=== PATIENT | male | born 1990 | race Caucasian/White ===

== ENCOUNTER 2017-06-05 15:53 | Emergency (ER) | payer SELFPAY ==
[~2017-06-05] VITALS: Ht 188 cm; Wt 90.7 kg
[2017-06-05] MEDS ORDERED: LIDOCAINE 1% INJ 50 ML MDV IJ ONE (16:08)
[2017-06-05] MEDS: LIDOCAINE 1% INJ 50 ML MDV IJ ONE (16:38)
[2017-06-05] MEDS ORDERED: TDAP [DIPH/PERTUSSIS/TET] 0.5 ML VIAL IM ONE (16:39)
[2017-06-05] MEDS: TDAP [DIPH/PERTUSSIS/TET] 0.5 ML VIAL IM ONE (16:43)
--- NOTE | 2017-06-05 16:43 | NUR ---
Patient discharged to home in stable condition. Written and verbal after care instructions given. Patient verbalizes understanding of instruction.
[2017-06-05 16:45] VITALS: BP 125/74
== END 2017-06-05 16:46 | disposition home or self-care (01) ==
LOC: ER 15:55
DX: S61.512A Laceration without foreign body of left wrist, initial encounter (principal); F17.200 Nicotine dependence, unspecified, uncomplicated; Z88.8 Allergy status to other drugs, medicaments and biological substances; Z23 Encounter for immunization; W26.8XXA Contact with other sharp object(s), not elsewhere classified, initial encounter; Y93.89 Activity, other specified; Y92.89 Other specified places as the place of occurrence of the external cause; Y99.8 Other external cause status
CPT/HCPCS: 12001; 90471; 90715; 99283; A4606; A6402; J3490; Z7610